=== PATIENT | male | born 1995 | race Caucasian/White ===

== ENCOUNTER 2022-01-02 10:19 | Emergency (ER) | payer BC, SELFPAY | END 2022-01-02 12:05 | disposition home or self-care (01) | LOC: ERS 10:19 | DX: S90.912A Unspecified superficial injury of left ankle, initial encounter (principal); L01.00 Impetigo, unspecified; L25.9 Unspecified contact dermatitis, unspecified cause; F17.210 Nicotine dependence, cigarettes, uncomplicated | CPT/HCPCS: 99282 ==